=== PATIENT | male | born 1990 | race Caucasian/White ===

== ENCOUNTER 2024-12-26 10:02 | Emergency (ER) | payer BC ==
[~2024-12-26] VITALS: Ht 185.4 cm; Wt 109.1 kg
[2024-12-26 10:15] VITALS: BP 137/70; PULSE 77; O2SAT 99
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
[2024-12-26] MEDS ORDERED: CYCL-394 PO (14:15)
[2024-12-26] MEDS ORDERED: LIDO-52 TOP (14:15)
[2024-12-26] MEDS ORDERED: NAPR-56 PO (14:15)
[2024-12-26 14:29] VITALS: RESP 16
[2024-12-26] MEDS: ketorolac trometh 30MG/ML vial 30 MG/ML VIAL IM ONE (14:29)
[2024-12-26 14:33] VITALS: TEMP 98.5
== END 2024-12-26 14:34 | disposition home or self-care (01) ==
LOC: ER 10:04
DX: S13.4XXA Sprain of ligaments of cervical spine, initial encounter (principal); Z88.8 Allergy status to other drugs, medicaments and biological substances; X58.XXXA Exposure to other specified factors, initial encounter; Y93.89 Activity, other specified; Y92.89 Other specified places as the place of occurrence of the external cause; Y99.8 Other external cause status
CPT/HCPCS: 72040; 96372; 99283; J1885